=== PATIENT | male | born 1985 | race Caucasian/White ===

== ENCOUNTER 2017-10-31 18:48 | Emergency (ER) | payer MEDICAID | END 2017-10-31 18:54 | disposition home or self-care (01) | LOC: FTE 18:48 → E/R 18:54 | DX: H92.02 Otalgia, left ear (principal) | CPT/HCPCS: 99283; Z7502 ==

== ENCOUNTER 2019-01-30 19:53 | Emergency (ER) | payer SELFPAY, MEDICAID | END 2019-01-30 21:09 | disposition home or self-care (01) | LOC: FTE 19:53 | DX: B02.9 Zoster without complications (principal); F17.210 Nicotine dependence, cigarettes, uncomplicated | CPT/HCPCS: 99283 ==